=== PATIENT | male | born 1990 | race African-American/Black ===

== ENCOUNTER 2016-07-24 23:22 | Emergency (ER) | payer SELFPAY ==
--- NOTE | 2016-07-25 01:01 | ER Document Report ---
HPI - HPI Patient complains to provider of: ankle pain Onset: Other - 2-3 days ago Onset/Duration: Persistent Quality of pain: Achy Severity: Severe Pain Level: 4 Context: Patient presents today with complaints of left ankle pain. He reports he hurt his ankle was playing basketball 2-3 days ago. He is unsure if he rolled his ankle. Then yesterday while he was at work at [employer] his ankle started hurting more. He denies past medical history of injury to ankle. Reports it hurts when he walks. Denies other symptoms such as fever vomiting diarrhea. His father gave him some icy hot to put on his ankle and it helped a little bit. Associated Symptoms: None Exacerbated by: Walking Relieved by: Denies Similar symptoms previously: No Recently seen / treated by doctor: No - CARDIOVASCULAR Cardiovascular: DENIES: Chest pain - REPRODUCTIVE Reproductive: DENIES: : - DERM Skin Color: Normal Past Medical History - General Information source: Patient - Social History Smoking Status: Current Every Day Smoker Cigarette use (# per day): Yes Frequency of alcohol use: None Drug Abuse: None Occupation: [employer] Family History: Reviewed & Not Pertinent Patient has suicidal ideation: No Patient has homicidal ideation: No Pulmonary Medical History: Reports: Hx Asthma Renal/ Medical History: Denies: Hx Peritoneal Dialysis Musculoskeltal Medical History: Reports Hx Musculoskeletal Deformity Surgical Hx: Negative - Immunizations Hx Diphtheria, Pertussis, Tetanus Vaccination: Yes - 2009 [facility] Provider Document - CONSTITUTIONAL Agree With Documented VS: Yes Exam Limitations: No Limitations General Appearance: WD/WN, No Apparent Distress - INFECTION CONTROL TRAVEL OUTSIDE OF THE [place] IN LAST 30 DAYS: No - HEENT HEENT: Atraumatic, Normocephalic - NECK Neck: Supple - RESPIRATORY Respiratory: Breath Sounds Normal, No Respiratory Distress O2 Sat by Pulse Oximetry: 98 - CARDIOVASCULAR Cardiovascular: Regular Rate - MUSCULOSKELETAL/EXTREMETIES Musculoskeletal/Extremeties: MAEW, FROM, Non-Tender - nontender to palpation brisk cap refill good pedal pulse no obvious deformity, c/o pain laterally - NEURO Level of Consciousness: Awake, Alert, Appropriate Motor/Sensory: No Motor Deficit - DERM Integumentary: Warm, Dry Adult Front & Back Diagram: 1 - reports pain, no obvious deformity Course - Re-evaluation Re-evalutation: 07/25/16 01:15 Patient instructed on neg fx, splint placed, declined crutches, requested work note - Vital Signs Vital signs: Temp Pulse Resp BP Pulse Ox 98.1 F 87 12 118/57 L 98 07/24/16 23:57 07/24/16 23:57 07/24/16 23:57 07/24/16 23:57 07/24/16 23:57 - Diagnostic Test Radiology reviewed: Image reviewed, Reports reviewed - RAD/ ANKLE LEFT COMPLETE IMPRESSION: Moderate lateral malleolar soft tissue swelling Discharge - Discharge Clinical Impression: Left lateral ankle pain Condition: Stable Disposition: HOME, SELF-CARE Instructions: Ice & Elevation ([facility]), Ankle Stirrup Splint ([facility]), Sports and your Ankle Additional Instructions: *You have been evaluated for an ankle injury *Rest/Ice/Elevate your ankle *Maintain the splint for comfort *Follow up with orthopedics for continued pain-call for an appointment *Take ibuprofen as indicated *Return to ED for worsening condition, changes, needs,concerns Forms: Return to Work
[2016-07-25 01:03] VITALS: BP 135/62
== END 2016-07-25 01:15 | disposition home or self-care (01) ==
LOC: ER 23:22
DX: M25.572 Pain in left ankle and joints of left foot (principal); M25.472 Effusion, left ankle; F17.210 Nicotine dependence, cigarettes, uncomplicated; J45.909 Unspecified asthma, uncomplicated
CPT/HCPCS: 99283; 73610; L1902

== ENCOUNTER 2016-11-13 21:10 | Emergency (ER) | payer SELFPAY ==
[2016-11-13 22:03] VITALS: BP 137/70
[2016-11-13] MEDS ORDERED: PREDNISONE 20 MG TABLET PO ONE (22:09)
[2016-11-13] MEDS ORDERED: OXYCODONE HCL IR 5 MG TABLET PO ONE (22:20)
--- NOTE | 2016-11-13 22:22 | ER Document Report ---
ED General - General Chief Complaint: Low Back Pain Stated Complaint: BACK PAIN Time Seen by Provider: 11/13/16 21:47 Mode of Arrival: Ambulatory Information source: Patient Notes: This is a 26-year-old man that presents with right lower back pain. The patient has been lifting a lot and he just moved into the new house. He denies any urinary or fecal incontinence. He denies any urinary retention. He denies any numbness or weakness to the lower extremities. TRAVEL OUTSIDE OF THE [place] IN LAST 30 DAYS: No - HPI Onset: Last week Onset/Duration: Gradual Quality of pain: Dull Severity: Moderate Pain Level: 2 Associated symptoms: denies: Chest pain, Fever, Shortness of breath Exacerbated by: Movement, Other - Bending over, lifting Relieved by: Remaining still Similar symptoms previously: Yes Recently seen / treated by doctor: No - Related Data Allergies/Adverse Reactions: red dye [Red Dye] Allergy (Intermediate, Verified 07/24/16 23:58) Past Medical History - General Information source: Patient - Social History Smoking Status: Never Smoker Cigarette use (# per day): No Chew tobacco use (# tins/day): No Frequency of alcohol use: None Drug Abuse: None Lives with: Family Family History: Reviewed & Not Pertinent Patient has suicidal ideation: No Patient has homicidal ideation: No - Past Medical History Cardiac Medical History: Reports: None Pulmonary Medical History: Reports: Hx Asthma Endocrine Medical History: Reports: None Renal/ Medical History: Reports: None. Denies: Hx Peritoneal Dialysis Malignancy Medical History: Reports None GI Medical History: Reports: None Musculoskeltal Medical History: Reports Hx Musculoskeletal Deformity Psychiatric Medical History: Reports: None Traumatic Medical History: Reports: None Infectious Medical History: Reports: None Surgical Hx: Negative - Immunizations Hx Diphtheria, Pertussis, Tetanus Vaccination: Yes - 2009 Review of Systems - Review of Systems Constitutional: denies: Chills, Fever EENT: No symptoms reported Cardiovascular: No symptoms reported Respiratory: No symptoms reported Gastrointestinal: No symptoms reported Genitourinary: No symptoms reported Male Genitourinary: No symptoms reported Musculoskeletal: See HPI Skin: No symptoms reported Hematologic/Lymphatic: No symptoms reported Neurological/Psychological: No symptoms reported Physical Exam - Vital signs Vitals: Temp Pulse Resp BP Pulse Ox 98.4 F 77 18 137/70 H 98 11/13/16 21:44 11/13/16 21:44 11/13/16 21:44 11/13/16 21:44 11/13/16 21:44 Notes: Physical exam: GENERAL: 26-year-old man, alert and oriented 3, no acute distress HEAD: Atraumatic, normocephalic. EYES: Pupils equal round and reactive to light, extraocular movements intact, sclera anicteric, conjunctiva are normal. ENT: TMs normal, nares patent, oropharynx clear without exudates. Moist mucous membranes. NECK: Normal range of motion, supple without lymphadenopathy or JVD. LUNGS: Breath sounds clear to auscultation bilaterally and equal. No wheezes rales or rhonchi. HEART: Regular rate and rhythm without murmurs, rubs or gallops. ABDOMEN: Soft, normoactive bowel sounds. No tenderness to palpation. No guarding, no rebound. No masses appreciated. Back: Patient does have paraspinal tenderness in the lower There is no midline tenderness. There is no crepitus over the spinal processes. There is no skin changes. EXTREMITIES: Normal range of motion, no pitting or edema. No clubbing or cyanosis. NEUROLOGICAL: Cranial nerves II through XII grossly intact. Motor to the lower extremities is 5/5, sensory grossly intact normal speech, normal gait. PSYCH: Normal mood, normal affect. SKIN: Warm, Dry, normal turgor, no rashes or lesions noted. Course - Vital Signs Vital signs: Temp Pulse Resp BP Pulse Ox 98.4 F 77 18 137/70 H 98 11/13/16 21:44 11/13/16 21:44 11/13/16 21:44 11/13/16 21:44 11/13/16 21:44 Discharge - Discharge Clinical Impression: Acute low back pain Condition: Stable Disposition: HOME, SELF-CARE Additional Instructions: Recommendations: Take the Medrol Dosepak as prescribed: This is a steroid which is an anti- inflammatory. Do not take any ibuprofen or Aleve while taking this medicine. Take the oxycodone as prescribed and needed: This is the narcotic. You can take Tylenol every 4-6 hours. Try heating pads to the low back. [facility]: You may require some physical therapy or an outpatient MRI) Return to the emergency room for any weakness to the lower legs, inability to urinate, worsening numbness. The pain medicine you're taking prescribed as a narcotic. There are several important things you should know about this medicine: 1. Taking narcotics for too long can lead to physical and mental dependence. Take this medicine only if really needed and in the lowest quantity to achieve pain relief. 2. Do not drink alcohol while on this medicine. Alcohol interacts with narcotics and the combination can be dangerous. 3. Do not drive or operate machinery while on this medicine. 4. Narcotics do cause constipation, so drink plenty of fluids and daily stool softeners. Prescriptions: Oxycodone HCl 5 mg PO Q6HP PRN #25 tablet PRN Reason: Methylprednisolone [Medrol 4 mg Dosepack 21 Tab/Pack] 4 mg PO ASDIR PRN #21 tab.ds.pk PRN Reason: Forms: Return to Work Referrals: [facility] [Provider Group] - Follow up as needed (This is the number the [facility] affiliated with the hospital.)
== END 2016-11-13 22:30 | disposition home or self-care (01) ==
LOC: ER 21:10
DX: M54.5 Low back pain (principal)
CPT/HCPCS: 99283; J7512

== ENCOUNTER 2017-09-18 15:14 | Emergency (ER) | payer SELFPAY ==
[2017-09-18 15:24] VITALS: BP 130/64
[2017-09-18] MEDS ORDERED: DEXAMETHASONE SOD PHOS INJ 10 MG/1 ML VIAL IM ONE (16:33)
[2017-09-18] MEDS ORDERED: KETOROLAC TROMETHAMINE INJ/PF 30 MG/1 ML SDV IM ONE (16:33)
--- NOTE | 2017-09-18 16:35 | ER Document Report ---
HPI - HPI Pain Level: 5 Notes: Patient is a 19-year-old male who presents to the ED complaining of acute on chronic back pain bilaterally. Patient states that the pain does not radiate. Patient states that he re-exacerbated his back pain over the last couple weeks lifting heavy objects. Patient states that the soreness has continued to worsen. He has noticed some spasming in his back as well. He has not had any injections or procedures to his back. He is eating and drinking without any difficulties. He is urinating normally and having normal bowel movements. Denies any drug allergies. Patient has not been seen by a specialist for his back. Denies any headache, fever, URI, sore throat, chest pain, palpitations, syncope, cough, shortness of breath, wheeze, dyspnea, abdominal pain, nausea/ vomiting/diarrhea, urinary retention, dysuria, hematuria, loss of control of bowel or bladder, numbness/tingling, saddle anesthesia, muscle paralysis/ weakness, or rash. - ROS Systems Reviewed and Negative: Yes All other systems reviewed and negative - REPRODUCTIVE Reproductive: DENIES: : Past Medical History - Social History Smoking Status: Unknown if Ever Smoked Chew tobacco use (# tins/day): No Frequency of alcohol use: Occasional Drug Abuse: None Family History: Reviewed & Not Pertinent Patient has suicidal ideation: No Patient has homicidal ideation: No Pulmonary Medical History: Reports: Hx Asthma Renal/ Medical History: Denies: Hx Peritoneal Dialysis Musculoskeltal Medical History: Reports Hx Musculoskeletal Deformity - Immunizations Hx Diphtheria, Pertussis, Tetanus Vaccination: Yes - 2009 [facility] Provider Document - CONSTITUTIONAL Agree With Documented VS: Yes Notes: PHYSICAL EXAMINATION: GENERAL: Well-appearing, well-nourished and in no acute distress. LUNGS: Breath sounds clear to auscultation bilaterally and equal. No wheezes rales or rhonchi. HEART: Regular rate and rhythm without murmurs, rubs, gallops. ABDOMEN: Soft, nontender, nondistended abdomen. No guarding, no rebound. No masses appreciated. Normal bowel sounds present. No CVA tenderness bilaterally. No pulsatile mass Musculoskeletal: LE's b/l: FROM to passive/active. Strength 5+/5. No deficits noted. No bony tenderness of extremities. Back: FROM to passive/active. Strength 5+/5. No vertebral point tenderness, stepoffs, or deformities. No other bony tenderness, erythema, swelling, or ecchymosis. SLR negative b/l. + mild tenderness to the L-paraspinal mm b/l, correlates with pain described. Mild spasming. No SI jt tenderness. No foot drop Extremities: No cyanosis, clubbing, or edema b/l. Peripheral pulses 2+. Capillary refill less than 2 seconds. NEUROLOGICAL: Normal speech, normal gait. Normal sensory, motor exams. Reflexes 2+ b/l. PSYCH: Normal mood, normal affect. SKIN: Warm, Dry, normal turgor, no rashes or lesions noted. - INFECTION CONTROL TRAVEL OUTSIDE OF THE [place] IN LAST 30 DAYS: No Course - Re-evaluation Re-evalutation: 09/18/17 16:37 Patient is an afebrile, well-hydrated, 27-year-old male who presents to the ED with acute on chronic low back pain. Vitals are acceptable. PE is otherwise unremarkable for any focal neurological deficits. Patient was given Decadron, Toradol. He has no significant tachycardia, tachypnea, or hypoxia. He is nontoxic-appearing and is tolerating p.o. without difficulties. There are no signs of infection. No other red flag symptoms noted. No other labs or imaging warranted at this time based on H&P. Low suspicion for any meningitis, fracture, expanding/ruptured AAA, cauda equina syndrome, epidural mass lesion/ abscess, herniated disc causing severe spinal stenosis, or other systemic infection at this time. Patient is aware that his condition can change from initial presentation and that he needs monitor symptoms closely for any acute changes. I will send him home with a prescription for baclofen, Lidoderm patches, and naproxen. Conservative measures otherwise for symptoms. Recheck with your PCM in 3-5 days. Consider consult with orthopedic/physical therapy. Return to the ED with any worsening/concerning symptoms otherwise as reviewed discharge. Patient is in agreement. - Vital Signs Vital signs: Temp Pulse Resp BP Pulse Ox 99.6 F 78 16 130/64 H 98 09/18/17 15:22 09/18/17 15:22 09/18/17 15:22 09/18/17 15:22 09/18/17 15:22 Discharge - Discharge Clinical Impression: Low back pain Qualifiers: Chronicity: acute Back pain laterality: bilateral Sciatica presence: without sciatica Qualified Code(s): M54.5 - Low back pain Condition: Stable Disposition: HOME, SELF-CARE Instructions: Low Back Pain ([facility]), Muscle Strain ([facility]), Stretching Exercises for the Back ([facility]) Additional Instructions: Rest, Ice, Compression, Elevation Tylenol/ibuprofen as needed Light stretches daily Strength exercises as able Moist heat and massage may help F/u with your PCP in 3-5 days for a recheck Consider consult(s) with Orthopedics/physical therapy for ongoing/worsening symptoms Return to the ED with any worsening symptoms and/or development of fever, headache, chest pain, palpitations, syncope, shortness of breath, trouble breathing, abdominal pain, n/v/d, blood in stool/urine, loss of control of bowel /bladder, urinary retention, muscle weakness/paralysis, saddle anesthesia, numbness/tingling, or other worsening symptoms that are concerning to you. Prescriptions: Baclofen [Baclofen 10 mg Tablet] 5 - 10 mg PO BID PRN #15 tablet PRN Reason: Lidocaine [Lidoderm] 1 each TP DAILY #30 adh..patch Naproxen 500 mg PO BID PRN #30 tablet PRN Reason: Forms: Elevated Blood Pressure, Return to Work Referrals: [facility] [Provider Group] - Follow up as needed
== END 2017-09-18 16:47 | disposition home or self-care (01) ==
LOC: ER 15:14
DX: M54.5 Low back pain (principal); X50.0XXA Overexertion from strenuous movement or load, initial encounter; G89.29 Other chronic pain; R25.2 Cramp and spasm; J45.909 Unspecified asthma, uncomplicated
CPT/HCPCS: 99283; 96372; J1885; J1100

== ENCOUNTER 2018-06-07 23:04 | Emergency (ER) | payer OTHER ==
[2018-06-07 23:36] VITALS: BP 135/71
[2018-06-08] MEDS ORDERED: DIAZEPAM INJ 10 MG/2 ML DISP.SYRIN IM ONE (01:12)
--- NOTE | 2018-06-08 01:15 | ER Document Report ---
HPI - HPI Time Seen by Provider: 06/08/18 01:04 Pain Level: 4 Context: Patient is a 28 year old male that comes to the Emergency Department for chief complaint of right sided neck pain. Patient states this has been going on for the last 5 days. He reports a lot of tightness and pain with movement. 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 Symptoms slowly began afterwards. He denies numbness, weakness, fever , IV drug abuse, or any daily medications. He did try Tylenol without significant improvement. He states now he can barely turn his head to the left. - REPRODUCTIVE Reproductive: DENIES: : Past Medical History - General Information source: Patient - Social History Smoking Status: Never Smoker Drug Abuse: None Lives with: Family Family History: Reviewed & Not Pertinent Pulmonary Medical History: Reports: Hx Asthma Renal/ Medical History: Denies: Hx Peritoneal Dialysis Musculoskeletal Medical History: Reports Hx Musculoskeletal Deformity - Immunizations Hx Diphtheria, Pertussis, Tetanus Vaccination: Yes - 2009 [facility] Provider Document - CONSTITUTIONAL General Appearance: WD/WN, No Apparent Distress, Obese - INFECTION CONTROL TRAVEL OUTSIDE OF THE [place] IN LAST 30 DAYS: No - HEENT HEENT: Atraumatic, Normocephalic - NECK Neck: Other - There is no soft tissue swelling of the neck, there are normal lymph nodes, there is no erythema, induration, fluctuance. Pain with range of motion of the neck to the left. There is palpable tenderness over the sternocleidomastoid on the right side. This is specific and reproducible with tenderness. Normal flexion and extension. Unremarkable otherwise. - RESPIRATORY Respiratory: Breath Sounds Normal, No Respiratory Distress - CARDIOVASCULAR Cardiovascular: Regular Rate, Regular Rhythm - GI/ABDOMEN Gastrointestinal: Abdomen Soft, Abdomen Non-Tender - BACK Back: Normal Inspection - Non-tender back generally on palpation. No midline tenderness, no saddle anesthesia, no signs of trauma. Normal upper and lower extremity range of motion, normal strength, normal distal neurovascular exam. - MUSCULOSKELETAL/EXTREMETIES Musculoskeletal/Extremeties: MAEW, FROM, Non-Tender - NEURO Level of Consciousness: Awake, Alert, Appropriate Motor/Sensory: No Motor Deficit, No Sensory Deficit - DERM Integumentary: Warm, Dry, No Rash Course - Re-evaluation Re-evalutation: Patient with specific muscular tenderness, pain with range of motion, worsening symptoms after event of muscular strain. No neurological deficits, no fever, no concerning past medical history reported. Discussed treatments, expectations, follow-up, and return precautions with patient. Patient states understanding and in agreement. - Vital Signs Vital signs: Temp Pulse Resp BP Pulse Ox 98.7 F 75 18 135/71 H 98 06/07/18 23:34 06/07/18 23:34 06/07/18 23:34 06/07/18 23:34 06/07/18 23:34 Discharge - Discharge Clinical Impression: Neck pain, Muscle spasm Condition: Stable Disposition: HOME, SELF-CARE Additional Instructions: Your evaluation is consistent with initially muscle strain and now muscle spasm, mainly of the sternocleidomastoid muscle of the neck. I recommend rest for the next 2-3 days if possible, apply heat to the area, do gentle stretches, take muscle relaxer and anti-inflammatories as prescribed. Symptoms should improve and then resolved. Follow-up with primary care. Return for any concerning or worsening symptoms including severe worsening pain or swelling fever, or any other concerning symptoms. Prescriptions: Methocarbamol [Robaxin-750] 750 mg PO QID PRN #20 tablet PRN Reason: Naproxen 500 mg PO BID PRN #20 tablet PRN Reason: Forms: Return to Work
== END 2018-06-08 01:46 | disposition home or self-care (01) ==
LOC: ER 23:04
DX: M54.2 Cervicalgia (principal); M62.838 Other muscle spasm; X50.9XXA Other and unspecified overexertion or strenuous movements or postures, initial encounter; J45.909 Unspecified asthma, uncomplicated
CPT/HCPCS: 99283; 96372; J3360

== ENCOUNTER 2019-01-03 20:00 | Emergency (ER) | payer SELFPAY ==
[2019-01-03] MEDS ORDERED: DEXAMETHASONE SOD PHOS INJ 10 MG/1 ML VIAL IM ONE (20:34)
[2019-01-03] MEDS ORDERED: KETOROLAC TROMETHAMINE 60 MG/2 ML SDV IM ONE (20:34)
--- NOTE | 2019-01-03 20:34 | ER Document Report ---
ED Medical Screen (RME) - General Chief Complaint: Low Back Pain Stated Complaint: LOWER BACK PAIN Time Seen by Provider: 01/03/19 20:32 Mode of Arrival: Wheelchair Information source: Patient Notes: 28-year-old male presented to ED for complaint of low back pain. He states he has chronic back pain but this pain feels different. He states he was bent over the felt like the lower back some again. He states the pain is radiating to his pelvic area. Patient is alert oriented respirations regular nonlabored speaking in full sentences. I have greeted and performed a rapid initial assessment of this patient. A comprehensive ED assessment and evaluation of the patient, analysis of test results and completion of medical decision making process will be conducted by an additional ED providers. TRAVEL OUTSIDE OF THE [place] IN LAST 30 DAYS: No - Related Data Allergies/Adverse Reactions: red dye [Red Dye] Allergy (Intermediate, Verified 07/24/16 23:58) Past Medical History - Social History Family history: Reviewed & Not Pertinent Pulmonary Medical History: Reports: Hx Asthma Renal/ Medical History: Denies: Hx Peritoneal Dialysis Musculoskeltal Medical History: Reports Hx Musculoskeletal Deformity - Immunizations Hx Diphtheria, Pertussis, Tetanus Vaccination: Yes - 2009
[2019-01-03 21:41] VITALS: BP 129/87
== END 2019-01-03 22:10 | disposition left against medical advice (07) ==
LOC: ER 20:00
DX: Z53.21 Procedure and treatment not carried out due to patient leaving prior to being seen by health care provider (principal); M54.5 Low back pain; G89.29 Other chronic pain; R10.2 Pelvic and perineal pain
CPT/HCPCS: J1885; J1100

== ENCOUNTER 2019-01-06 14:17 | Emergency (ER) | payer SELFPAY ==
[2019-01-06 14:24] VITALS: BP 143/88
[2019-01-06] MEDS ORDERED: KETOROLAC TROMETHAMINE 60 MG/2 ML SDV IM ONE (16:12)
--- NOTE | 2019-01-06 16:16 | ER Document Report ---
HPI - HPI Patient complains to provider of: Chronic back pain Time Seen by Provider: 01/06/19 15:49 Onset: Last week Onset/Duration: Sudden Quality of pain: Achy Context: This 28-year-old male with history of chronic back pain presents emergency department with complaints of exacerbation of back pain. Reports he was bending over given the dog a bath and he felt a pop. Reports pain since that time. Patient was evaluated a few days ago here in the emergency department. Reports he received a shot and felt little bit better after that but he still has not been able to return to work. He denies urinary bowel incontinence or retention. Denies paresthesia. Denies history of IV drug use and steroids. Denies weakness. Denies fever vomiting diarrhea. Associated Symptoms: None Exacerbated by: Movement Relieved by: Denies Similar symptoms previously: Yes Recently seen / treated by doctor: Yes - REPRODUCTIVE Reproductive: DENIES: : Past Medical History - General Information source: Patient - Social History Smoking Status: Unknown if Ever Smoked Cigarette use (# per day): No Frequency of alcohol use: None Drug Abuse: None Occupation: [email or web address] Lives with: Family Family History: Reviewed & Not Pertinent Patient has suicidal ideation: No Patient has homicidal ideation: No Pulmonary Medical History: Reports: Hx Asthma Renal/ Medical History: Denies: Hx Peritoneal Dialysis Musculoskeletal Medical History: Reports Hx Musculoskeletal Deformity Surgical Hx: Negative - Immunizations Hx Diphtheria, Pertussis, Tetanus Vaccination: Yes - 2009 Vertical Provider Document - CONSTITUTIONAL Agree With Documented VS: Yes Exam Limitations: No Limitations General Appearance: WD/WN, No Apparent Distress - INFECTION CONTROL TRAVEL OUTSIDE OF THE [place] IN LAST 30 DAYS: No - HEENT HEENT: Atraumatic, Normocephalic - NECK Neck: Supple - RESPIRATORY Respiratory: Breath Sounds Normal, No Respiratory Distress - CARDIOVASCULAR Cardiovascular: Regular Rate - GI/ABDOMEN Gastrointestinal: Abdomen Soft - BACK Back: Normal Inspection - No obvious deformity no erythema no warmth no swelling good distal movement and sensation complains of paraspinal tenderness to the lower back. No weakness. - MUSCULOSKELETAL/EXTREMETIES Musculoskeletal/Extremeties: MAEW, FROM, Non-Tender - NEURO Level of Consciousness: Awake, Alert, Appropriate Motor/Sensory: No Motor Deficit - DERM Integumentary: Warm, Dry Course - Re-evaluation Re-evalutation: 01/06/19 16:20 28-year-old male with history of chronic back pain presents again to the emergency department with complaints of exacerbation of back pain. Reports that happened after he was given the dog a bath. Patient is morbidly obese. He was instructed on possible weight loss to help with symptoms. He also instructed on Toradol and muscle relaxers. He was encouraged to follow-up with a primary care provider for referrals as indicated. He verbalized understanding to all instructions and then asked for a work note. Low suspicion for any meningitis, fracture, expanding/ruptured AAA, cauda equina syndrome, epidural mass lesion/abscess, herniated disc causing severe spinal stenosis, or other systemic infection at this time. Patient is aware that this condition can change from initial presentation and that she needs monitor symptoms closely for any acute changes. Dictation of this chart was performed using voice recognition software; therefore, there may be some unintended grammatical errors. 01/06/19 16:22 - Vital Signs Vital signs: Temp Pulse Resp BP Pulse Ox 98.8 F 81 16 143/88 H 97 01/06/19 14:22 01/06/19 14:22 01/06/19 14:22 01/06/19 14:22 01/06/19 14:22 Discharge - Discharge Clinical Impression: Acute exacerbation of chronic low back pain Condition: Stable Disposition: HOME, SELF-CARE Instructions: Chronic Back Pain ([facility]), Use of [id number]-[id number] Ibuprofen ([facility]), Ice Packs ([facility]), Muscle Relaxers ([facility]), Toradol Injection ([facility]) Additional Instructions: *You have been evaluated for chronic back pain *Take medication as prescribed take ibuprofen as indicated for pain *Rest/Ice packs *Follow up with a primary care provider within one week for evaluation and referral to pain management as indicated *Return to ED for worsening condition, changes, needs Monitor your blood pressure. Your blood pressure was elevated today. This may be because you were anxious, in pain or because you need medication. It is important to follow up with your primary care provider for full evaluation. Prescriptions: Cyclobenzaprine HCl [Flexeril 10 Mg Tablet] 10 mg PO TID #15 tablet Forms: Elevated Blood Pressure, Return to Work
== END 2019-01-06 16:29 | disposition home or self-care (01) ==
LOC: ER 14:17
DX: G89.29 Other chronic pain (principal); M54.5 Low back pain
CPT/HCPCS: 96374; 99283; J1885